=== PATIENT | male | born 1985 | race Hispanic/Latino ===

== ENCOUNTER 2020-04-11 12:13 | Emergency (ER) | payer OTHER ==
[~2020-04-11] VITALS: Ht 180.3 cm; Wt 88.0 kg
--- NOTE | 2020-04-11 13:00 | Emergency Department Note ---
History of Present Illnes History of Present Illness Chief Complaint: c/o generalized weakness and dizziness for 2 days History of Present Illness This is a 34 year old male . 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 [employer]ile[employer] Required: No Onset (how long ago): day(s) Quality: worse with standing Radiation: non-radiation Severity: moderate Onset quality: sudden Duration (how long): day(s) (2) Timing of current episode: intermittent Progression: waxing and waning Chronicity: new Context: other (possible gi bleed 1 month ago in the process of getting an endoscopy) Relieving factors: none Exacerbating factors: none Associated symptoms: other (early fullness) Previous service: medications given (protonix only) Past Medical/Family History Physician Review I have reviewed the patient's past medical and family history. Any updates have been documented here. Past Medical History Recent Fever: No Clinical Suspicion of Infectio: No Past Medical History: None Other Medical History: as per hpi saw a gi doctor a few days ago sched for a EGD on 04/20/2020 Past Surgical History: None Social History Smoking Cessation: Never Smoker Alcohol Use: Occasional Any Illegal Drug Use: No TB Exposure/Symptoms: No Physically hurt or threatened: No Other Any Pre-Existing Lines (PICC,: No Is patient up to date on immun: No Review of Systems Review of Systems Musculoskeletal: other (upper back pain) Review of other systems All other systems reviewed and negative. Physical Exam Related Data Allergies: Coded Allergies: Penicillins (Verified Allergy, Intermediate, rash/hives, 04/11/20) Physical Exam CONSTITUTIONAL Constitutional: well-developed, well-nourished HENT HENT: normocephalic, atraumatic EYES Eyes: PERRL, conjunctivae normal NECK Neck: ROM normal, supple PULMONARY Pulmonary: effort normal, breath sounds normal CARDIOVASCULAR Cardiovascular: regular rhythm, heart sounds normal, capillary refill normal, normal rate GASTROINTESTINAL Abdominal: soft, nontender, bowel sounds normal, other (stool brown and GUAIAC negative) GENITOURINARY Genitourinary: exam deferred SKIN Skin: warm, dry MUSCULOSKELETAL Musculoskeletal: ROM normal NEUROLOGICAL Neurological: alert, oriented x 3, DTRs normal, no gross motor or sensory deficits PSYCHOLOGICAL Psychological: mood/affect normal, behavior normal, thought content normal, judgement normal Results Laboratory Laboratory labs unrmarkable except non fasting glucose of 130 Lab results reviewed: Yes Imaging Imaging results reviewed: Yes Impressions ct head and cxr NAD Diagnostics Tests Diagnostic test(s) reviewed: Yes Diagnostic comments ekg wnl except a very mild RAD Critical Care Time Subsequent provider I assumed direction of critical care for this patient from another provider of my specialty. Assessment & Plan Reassessment Reassessment time: 15:38 Reassessment dizziness greatly decreased Assessment & Plan Final Impression: (1) DIZZINESS AND GIDDINESS Assessment & Plan d/c home follow up with PMD and GI as scheduled Depart Disposition: HOME, SELF-FCI Meds Active Scripts Meclizine Hcl (MECLIZINE HCL) 25 Mg Tablet, 25 MG PO BID PRN for DIZZINESS for 7 Days, #14 0 Refills Prov:LINDA MEDRANO MD 04/11/20 Medications in the ED given RX for antivert LINDA MEDRANO MD April 11, 2020 13:00
[2020-04-11] MEDS ORDERED: MECLIZINE HCL 12.5 MG TAB PO STA (13:36)
[2020-04-11] MEDS ORDERED: MECLIZINE HCL 12.5 MG TAB ONE (14:17)
--- NOTE | 2020-04-11 14:59 | Diagnostic Imaging Report ---
EXAMINATION: CXR 2 VIEW - HOPD INDICATION: Thoracic pain. COMPARISON: None FINDINGS: TUBES and LINES: None. LUNGS: Lungs are well inflated. There is no evidence of pneumonia or pulmonary edema. PLEURA: No pleural effusion or pneumothorax. HEART AND MEDIASTINUM: The cardiomediastinal silhouette is unremarkable. BONES AND SOFT TISSUES: No acute osseous lesion. Soft tissues are unremarkable. UPPER ABDOMEN: No free air under the diaphragm. IMPRESSION: No acute thoracic abnormality. Signed by: Dr. Brock Wilkerson MD on 04/11/2020 2:56 PM
--- NOTE | 2020-04-11 15:32 | Diagnostic Imaging Report ---
History: Dizziness for 2 days Comparison studies: None Technique: Axial images were obtained from the skull base to the vertex. Coronal and sagittal reconstructions obtained from the axial data. Dose modulation, iterative reconstruction, and/or weight based adjustment of the mA/kV was utilized to reduce the radiation dose to as low as reasonably achievable. Findings: Scalp/skull: No abnormalities. No fractures, blastic or lytic lesions. Extra-axial spaces: No masses. No fluid collections. Brain sulci: Appropriate for age. Ventricles: Normal in size and configuration. No hydrocephalus. Parenchyma: No abnormal densities. No masses, hemorrhage, acute or chronic cortical vascular insults. Sellar/suprasellar region: No abnormalities Craniocervical junction: Patent foramen magnum. No Chiari one malformation. IMPRESSION: No abnormalities . Signed by: DR Valente Flores M.D. on 04/11/2020 3:29 PM
[2020-04-11 15:39] VITALS: BP 134/73
[2020-04-11] MEDS ORDERED: MECLIZINE HCL25 MG PO (15:41)
== END 2020-04-11 16:04 | disposition home or self-care (01) ==
LOC: FSED 12:13
DX: R53.1 Weakness (principal); R42 Dizziness and giddiness
CPT/HCPCS: 70450; 71046; 80048; 80076; 81003; 85025; 99284; J8597; 93005